=== PATIENT | female | born 1995 | race Caucasian/White ===

== ENCOUNTER → 2023-02-17 | Outpatient (CLI) | payer BC ==
[2023-02-18 05:24] LABS: Basophils # (A) 0.04 X 10*3/uL (0.00-0.10); Basophils % (A) 0.8 %; Eosinophils # (A) 0.21 X 10*3/uL (0.04-0.35); Eosinophils % (A) 4.1 %; HCT 35.8 % (37.2-46.3); HGB 11.1 d/dL (12.0-15.0); Lymphocytes % (A) 29.5 %; MCV 90.4 FL (80.0-97.0); Mean Platelet Volume 10.3 FL (9.5-12.2); Monocytes # (A) 0.31 X 10*3/uL (0.20-1.00); Monocytes % (A) 6.1 %; NRBC Per 100 WBC 0 X 10*3/uL (0.00-0.01); Neutrophils # (A) 3.01 X 10*3/uL (1.80-7.70); Neutrophils % (A) 59.3 %; Platelet Count 314 X 10*3/uL (140-440); RBC 3.96 X 10*6/uL (4.10-5.20); RDW 15.1 % (11.5-14.5); WBC 5.08 X 10*3/uL (4.50-10.00)
== END | disposition home or self-care (01) ==
LOC: LABPAT 15:30
PROVIDERS: ATTEND Obstetrics & Gynecology
DX: Z01.812 Encounter for preprocedural laboratory examination (principal); T83.9XXA Unspecified complication of genitourinary prosthetic device, implant and graft, initial encounter; Y82.9 Unspecified medical devices associated with adverse incidents
CPT/HCPCS: 85025

== ENCOUNTER 2023-02-23 08:50 | Day surgery (SDC) | payer BC ==
[~2023-02-23 08:50] MED LIST: DEXAMETHASONE SOD PHOSPHATE 4 MG/ML 1 ML VIAL IV ONE; HYDROmorphone 0.5 MG/0.5 ML SYRINGE IVP PRN; LACTATED RINGERS 1,000 ML IV SCH; MIDAZOLAM 2 MG/2 ML VIAL IV PRN; ONDANSETRON 4 MG/2 ML VIAL IVP ONE; Pre Op ABX Message 1 EACH MISC MISCELLANE ONE; SCOPOLAMINE 1 MG/72 HR PATCH TRANSDERM ONE
[2023-02-23] MEDS ORDERED: LIDOCAINE 1% (10MG/ML) FOR IV START INTRADERMA ONE (09:25)
[2023-02-23] MEDS ORDERED: fentaNYL (PF) 50 MCG/ML 2 ML AMP ONE (10:20)
[2023-02-23] MEDS ORDERED: MIDAZOLAM 2 MG/2 ML VIAL ONE (10:20)
[2023-02-23] MEDS ORDERED: KETOROLAC 15 MG/ML 1 ML VIAL ONE (10:20)
[2023-02-23] MEDS ORDERED: PROPOFOL 10 MG/ML 20 ML VIAL IV ONE (10:20)
[2023-02-23] MEDS ORDERED: SIMETHICONE 80 MG CHEWABLE PO PRN (10:45)
[2023-02-23] MEDS ORDERED: KETOROLAC 15 MG/ML 1 ML VIAL IVP PRN (10:45)
[2023-02-23] MEDS ORDERED: LACTATED RINGERS 1,000 ML IV SCH (10:45)
[2023-02-23] MEDS ORDERED: ONDANSETRON 4 MG/2 ML VIAL IVP PRN (10:45)
[2023-02-23] MEDS ORDERED: METOCLOPRAMIDE 5 MG/ML 2 ML VIAL IVP PRN (10:45)
[2023-02-23] MEDS ORDERED: diphenhydrAMINE 50 MG/ML 1 ML VIAL IVP PRN (10:45)
[2023-02-23] MEDS ORDERED: Acetaminophen-Codeine 300-30mg TAB PO PRN ×2 (10:45)
--- NOTE | 2023-02-23 10:53 | P.OP ---
Date of Procedure: 02/23/23 Preoperative Diagnosis: #1. Contraceptive management #2. Probable expelled Kyleena intrauterine device #3. Fibroid uterus Postoperative Diagnosis: Same Procedure(s) Performed: #1. Diagnostic hysteroscopy #2. Placement of Kyleena intrauterine device Anesthesia: other (Gen. by facemask) Surgeon: Raul Sarkar Estimated Blood Loss (ml): 5 IV fluids (ml): 800 Urine output (ml): 10 Pathology: none sent Condition: stable Disposition: PACU Operative Findings: Preoperative pelvic examination demonstrated a roughly 4-5 week slightly retroverted mobile uterus with a clearly palpable roughly 4 cm right lateral lower uterine segment fibroid which is likely subserosal in nature. The adnexa were normal and without mass bilaterally. Intraoperatively, the uterus sounded to approximately 8 cm. Using the hysteroscope, the intrauterine cavity was normal to inspection was some shaggy endometrium consistent with some ongoing current bleeding. The tubal ostia were seen bilaterally. There was a clear bulge at the right posterior lateral lower uterine segment consistent with the location of the fibroid on exam. The intrauterine device was placed in standard fashion without difficulty. Description of Procedure: The patient was prepped and draped in usual fashion after general anesthesia was administered by the anesthesiologist. A weighted speculum was placed and the bladder catheterized approximately 10 mL of clear bill urine. The anterior lip of the cervix was grasped with a single-tooth tenaculum and the uterus sounded to approximately 8 cm as noted above. Serial dilation was carried out to admit the diagnostic hysteroscope which was placed into the uterus and the cavity distended with normal saline. There was no evidence of an intrauterine device present as had been potentially suggested by ultrasound and refuted by x-ray. The endometrial cavity appeared otherwise entirely normal with a bilateral tubal ostial regions noted. There was some shaggy endometrium apparent at the fundus particularly on the top right consistent with ongoing menses. There was also suggested with the hysteroscope of the area where the fibroid was located at the right posterior lateral lower uterine segment where it appeared to bulge into the cervical cavity to some extent. After insuring that no IUD was currently present and that there was no further pathology, the scope was set aside and the Kyleena IUD opened, loaded and placed in the endometrial cavity in standard fashion without any difficulty whatsoever. The strings were trimmed her proximally 4 cm. All instrumentation was removed. There was no ongoing bleeding either from the cervix or the tenaculum sites. Postprocedural pelvic examination was completely within normal limits. All sponge, instrument, needle counts were correct. Estimated blood loss for the case was less than 5 mL. There were no complications. The patient tolerated the procedure well and proceeded to the recovery room in stable condition.
[2023-02-23 10:55] VITALS: TEMP 97.6
[2023-02-23 11:59] VITALS: RESP 16
[2023-02-23 12:10] VITALS: BP 132/87; PULSE 62
[2023-02-24] MEDS ORDERED: ACETAMINOPHEN TAB 325 MG TAB PO PRN (10:46)
== END 2023-02-23 12:34 | disposition home or self-care (01) ==
LOC: OR 08:50
PROVIDERS: ATTEND Obstetrics & Gynecology
DX: D25.9 Leiomyoma of uterus, unspecified (principal); Z79.899 Other long term (current) drug therapy
CPT/HCPCS: 81025; 84703; 58300; 58555; J2250; J1100; J2405; J3010; J1885; J2704